=== PATIENT | female | born 1990 | race African-American/Black ===

== ENCOUNTER 2019-09-19 21:18 | Observation (INO) | payer MEDICAID, OTHER ==
[~2019-09-19] VITALS: Ht 147.3 cm; Wt 61.2 kg
[2019-09-19] MEDS ORDERED: LACTATED RINGERS 1,000 ML IV SCH (21:30)
[2019-09-19] MEDS ORDERED: TERBUTALINE SULFATE 1MG/ML VIAL SUBCUT PRN (21:30)
[2019-09-19 22:52] LABS: CLARITY URINE CLOUDY (CLEAR); COLOR URINE YELLOW (YELLOW); KETONES URINE 1+ (NEGATIVE); LEUKOCYTE ESTERASE URINE 1+ (NEGATIVE); NITRITE URINE NEGATIVE (NEGATIVE); OCCULT BLOOD URINE NEGATIVE (NEGATIVE); PH URINE 7.5 (4.5-8.0); PROTEIN URINE TRACE (NEGATIVE); SPECIFIC GRAVITY URINE 1.021 (1.005-1.030)
== END 2019-09-20 00:05 | disposition home or self-care (01) ==
LOC: INTOOBSV 21:18 → 8 EST LDRP 21:18
PROVIDERS: ADMIT Obstetrics & Gynecology; ATTEND Obstetrics & Gynecology
DX: O62.9 Abnormality of forces of labor, unspecified (principal); Z3A.32 32 weeks gestation of pregnancy
CPT/HCPCS: 76805; 76818; 81003; 96360; 96361; 96372; 99281; G0378; J3105; 59412